=== PATIENT | male | born 1955 | race Caucasian/White ===

== ENCOUNTER 2016-08-03 16:55 | Emergency (ER) | payer BC ==
[2016-08-03] MEDS ORDERED: HYDROCODONE/APAP 7.5/325MG TABLET PO ONE (17:13)
--- NOTE | 2016-08-03 17:17 | Emergency Department Record ---
History of Present Illness - General Chief complaint: Extremity Problem Stated complaint: RESTLESS LEG Time Seen by Provider: 08/03/16 16:58 Source: Patient Mode of Arrival: Ambulatory Limitations: No limitations - History of Present Illness Initial comments: 61 yo male presents to ED with a CC of worsening restless leg syndrome since taking hi last [place] tablet yesterday morning around 10:00 AM. Patient reports taking the [place] 7.5 mg 5 times daily, and is out of his monthly supply but has been unable to see his PCP for a refill. Patient denies reports similar sympotms previously when her has run out of his medication. Complaint: Other (restless legs) -: Year(s) Location: Bilateral, Lower Leg, Thigh History of Same: Yes Consistency: Constant Improves with: Nothing Worsens with: Nothing Associated Symptoms: Denies other symptoms - Related Data Home Medications Medication Instructions Recorded Confirmed Last Taken Amitriptyline HCl [Amitriptyline 100 mg PO ASDIR 08/03/16 08/03/16 08/03/16 HCl] Atorvastatin Calcium [Lipitor] 10 mg PO DAILY 08/03/16 08/03/16 08/02/16 Hydrocodone/Acetaminophen 1 tab PO ASDIR 08/03/16 08/03/16 08/02/16 [Hydrocodone/Acetaminophen 7.5mg/325mg] Allergies Allergy/AdvReac Type Severity Reaction Status Date / Time Penicillins Allergy HIVES Verified 08/03/16 17:00 Travel Screening - Travel/Exposure Within Last 30 Days Have you traveled within the last 30 days?: No - Travel/Exposure Within Last Year Have you traveled outside the [place] in the last year?: No - Additonal Travel Details Have you been exposed to anyone with a communicable illness?: No - Travel Symptoms Symptom Screening: None Review of Systems Constitutional: Denies: Chills, Fever, Malaise, Night sweats Eyes: Denies: Eye discharge, Eye pain ENT: Denies: Congestion, Ear pain, Epistaxis Respiratory: Denies: Cough, Dyspnea Cardiovascular: Denies: Chest pain, Dyspnea on exertion Endocrine: Denies: Fatigue, Heat or cold intolerance Gastrointestinal: Denies: Abdominal pain, Nausea, Vomiting Genitourinary: Denies: Incontinence, Retention Musculoskeletal: Denies: Arthralgia, Back pain, Gout, Joint swelling Skin: Denies: Bruising, Change in color Neurological: Denies: Abnormal gait, Confusion, Headache, Seizure Psychiatric: Reports: Anxiety Hematological/Lymphatic: Denies: Anemia, Blood Clots Past Medical History - SOCIAL HISTORY Smoking Status: Never smoker Alcohol Use: Occassional Drug Use: None - RESPIRATORY Hx Respiratory Disorders: No - CARDIOVASCULAR Hx Cardio Disorders: No - NEURO Hx Neuro Disorders: Yes Hx Headaches: Yes (Migraines) Comment:: Restless legs - GI Hx GI Disorders: No - Hx Genitourinary Disorders: No - ENDOCRINE Hx Endocrine Disorders: No - MUSCULOSKELETAL Hx Musculoskeletal Disorders: No - PSYCH Hx Psych Problems: No - HEMATOLOGY/ONCOLOGY Hx Hematology/Oncology Disorders: No Family Medical History Any Significant Family History?: No Physical Exam - General General Appearance: Alert, Oriented x3, Cooperative, Mild distress, Other ( patient is unable to sit still on examination, pacing the ED) Limitations: No limitations - Head Head exam: Atraumatic, Normocephalic, Normal inspection Head exam detail: negative: Abrasion, Contusion, Lira's sign, General tenderness, Hematoma, Laceration - Eye Eye exam: Normal appearance. negative: Conjunctival injection, Periorbital swelling, Periorbital tenderness, Scleral icterus - ENT Ear exam: negative: Auricular hematoma, Auricular trauma Nasal Exam: negative: Active bleeding, Discharge, Dried blood, Foreign body Mouth exam: negative: Drooling, Laceration, Muffled voice, Tongue elevation - Neck Neck exam: Normal inspection. negative: Meningismus, Tenderness - Respiratory Respiratory exam: Normal lung sounds bilaterally. negative: Rales, Respiratory distress, Rhonchi, Stridor - Cardiovascular Cardiovascular Exam: Normal rhythm, Normal heart sounds, Tachycardia - GI/Abdominal GI/Abdominal exam: Soft. negative: Rebound, Rigid, Tenderness - Rectal Rectal exam: Deferred - exam: Deferred - Extremities Extremities exam: Normal inspection. negative: Calf tenderness, Pedal edema, Tenderness - Back Back exam: Denies: CVA tenderness (R), CVA tenderness (L) - Neurological Neurological exam: Alert, Normal gait, Oriented X3 - Psychiatric Psychiatric exam: Normal affect, Normal mood - Skin Skin exam: Normal color. negative: Abrasion Type of lesion: negative: abrasion Course Vital Signs 08/03/16 17:03 Temperature 97.8 F Pulse Rate 133 H Respiratory 16 Rate Blood Pressure 132/78 Pulse Ox 97 - Reevaluation(s) Reevaluation #1: 08/03/16 17:28 Patient's symptoms appear c/w opiate withdrawal symptoms. Patient is walking around the ED easily, is conversational, and has no clinical evidence for other systemic illness (fevers, sepsis, etc.). Case was discussed with Dr. Alvarado, will instruct the patient to follow-up with one of his PAs tomorrow for further evaluation and renewal of his medication. Patient appears stable for discharge at this time. 08/03/16 17:31 Disposition Disposition: Discharge Clinical Impression: Opiate withdrawal, Restless leg Disposition: Home, Self-Care Condition: (2) Stable Instructions: Restless Legs Syndrome (ED) Additional Instructions: Return to ED if your symptoms worsen or if you have any concerns. Follow-up with Dr. Alvarado tomorrow for further evaluation. Steven as directed. Forms: Patient Portal Access Time of Disposition: 17:31
[2016-08-03] MEDS ORDERED: HYDROCODONE/APAP 10/325 TABLET PO ONE (17:32)
== END 2016-08-03 17:45 | disposition home or self-care (01) ==
LOC: ER 16:55
DX: F11.23 Opioid dependence with withdrawal (principal); G25.81 Restless legs syndrome; T40.0X5A Adverse effect of opium, initial encounter
CPT/HCPCS: 99282

== ENCOUNTER 2016-11-02 07:53 | Emergency (ER) | payer BC ==
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
== END 2016-11-02 08:45 | disposition home or self-care (01) ==
LOC: ER 07:53
DX: F41.1 Generalized anxiety disorder (principal)
CPT/HCPCS: 99282

== ENCOUNTER 2017-04-09 14:13 | Emergency (ER) | payer BC ==
[2017-04-09] MEDS ORDERED: HYDROCODONE/APAP 5/325MG TABLET PO ONE (16:58)
--- NOTE | 2017-04-09 16:59 | Emergency Department Record ---
History of Present Illness - General Chief complaint: Pain Stated complaint: WITHDRAWAL FROM VICOD[place] Time Seen by Provider: 04/09/17 16:28 Source: Patient Mode of Arrival: Ambulatory Limitations: No limitations - History of Present Illness Initial comments: pt is here because pharmacist is refusing to fill his rxs for norco. he has been on it for years. he had 20 rxd on mar 16 at 1 a day. he is out and has a new rx but for some reason pharm wouldnt fill MD Complaint: Other (migraines and restless legs) Onset/Timin -: Days(s) Location: Lower Leg, Other History of Same: Yes Radiation: None Quality: Other Consistency: Constant, Getting worse Improves with: Medication Associated Symptoms: Denies other symptoms - Related Data Home Medications Medication Instructions Recorded Confirmed Last Taken Duloxetine HCl [Cymbalta] 60 mg PO DAILY 04/09/17 04/09/17 04/09/17 08:00 Hydrocodone/Acetaminophen [[place] 1 tab PO Q4HR PRN 04/09/17 04/09/17 Unknown 7.5mg/325mg] Pramipexole Di-HCl [Mirapex] 1 mg PO BID 04/09/17 04/09/17 04/09/17 08:00 Allergies Allergy/AdvReac Type Severity Reaction Status Date / Time Penicillins Allergy Intermediate HIVES Verified 04/09/17 16:09 Travel Screening - Travel/Exposure Within Last 30 Days Have you traveled within the last 30 days?: No - Travel/Exposure Within Last Year Have you traveled outside the [place] in the last year?: No - Additonal Travel Details Have you been exposed to anyone with a communicable illness?: No - Travel Symptoms Symptom Screening: None Review of Systems Reviewed: No additional complaints except as noted below Constitutional: Reports: As per HPI. Denies: Chills, Fever, Malaise, Night sweats, Weakness, Weight change Eyes: Reports: As per HPI. Denies: Eye discharge, Eye pain, Photophobia, Vision change ENT: Reports: As per HPI. Denies: Congestion, Dental pain, Ear pain, Epistaxis , Hearing loss, Throat pain Respiratory: Reports: As per HPI. Denies: Cough, Dyspnea, Hemoptysis, Stridor, Wheezes Cardiovascular: Reports: As per HPI. Denies: Arrhythmia, Chest pain, Dyspnea on exertion, Edema, Murmurs, Orthopnea, Palpitations, Paroxysmal nocturnal dyspnea, Rheumatic Fever, Syncope Endocrine: Reports: As per HPI. Denies: Fatigue, Heat or cold intolerance, Polydipsia, Polyuria Gastrointestinal: Reports: As per HPI. Denies: Abdominal pain, Constipation, Diarrhea, Hematemesis, Hematochezia, Melena, Nausea, Vomiting Genitourinary: Reports: As per HPI. Denies: Dysuria, Frequency, Hematuria, Incontinence, Retention, Testicular pain, Testicular mass, Urgency Musculoskeletal: Reports: As per HPI. Denies: Arthralgia, Back pain, Gout, Joint swelling, Myalgia, Neck pain Skin: Reports: As per HPI. Denies: Bruising, Change in color, Change in hair/ nails, Lesions, Pruritus, Rash Neurological: Reports: As per HPI. Denies: Abnormal gait, Confusion, Headache, Numbness, Paresthesias, Seizure, Tingling, Tremors, Vertigo, Weakness Psychiatric: Reports: As per HPI. Denies: Anxiety, Auditory hallucinations, Depression, Homicidal thoughts, Suicidal thoughts, Visual hallucinations Hematological/Lymphatic: Reports: As per HPI. Denies: Anemia, Blood Clots, Easy bleeding, Easy bruising, Swollen glands Past Medical History - SOCIAL HISTORY Smoking Status: Never smoker Alcohol Use: Occasional Drug Use: None - RESPIRATORY Hx Respiratory Disorders: No - CARDIOVASCULAR Hx Cardio Disorders: Yes Comment:: high cholesterol - NEURO Hx Neuro Disorders: Yes Hx Headaches: Yes (Migraines) Comment:: Restless legs - GI Hx GI Disorders: No - Hx Genitourinary Disorders: No - ENDOCRINE Hx Endocrine Disorders: No - MUSCULOSKELETAL Hx Musculoskeletal Disorders: No - PSYCH Hx Psych Problems: No - HEMATOLOGY/ONCOLOGY Hx Hematology/Oncology Disorders: No Family Medical History Any Significant Family History?: No Physical Exam - General General Appearance: Alert, Oriented x3, Cooperative, Mild distress - Head Head exam: Normal inspection - Eye Eye exam: Normal appearance, PERRL, EOMI Pupils: Normal accommodation - ENT ENT exam: Normal exam, Mucous membranes moist, Normal external ear exam, Normal orophraynx Ear exam: Normal external inspection. negative: External canal tenderness Nasal Exam: Normal inspection. negative: Discharge, Sinus tenderness Mouth exam: Normal external inspection, Tongue normal Teeth exam: Normal inspection. negative: Dental caries Throat exam: Normal inspection. negative: Tonsillar erythema, Tonsillar exudate - Neck Neck exam: Normal inspection, Full ROM. negative: Tenderness - Respiratory Respiratory exam: Normal lung sounds bilaterally. negative: Respiratory distress - Cardiovascular Cardiovascular Exam: Regular rate, Normal rhythm, Normal heart sounds - GI/Abdominal GI/Abdominal exam: Soft, Normal bowel sounds. negative: Tenderness - Rectal Rectal exam: Deferred - exam: Deferred - Extremities Extremities exam: Normal inspection, Full ROM, Normal capillary refill. negative: Tenderness - Back Back exam: Reports: Normal inspection, Full ROM. Denies: Muscle spasm, Rash noted, Tenderness - Neurological Neurological exam: Alert, CN II-XII intact, Normal gait, Oriented X3 - Psychiatric Psychiatric exam: Normal affect, Normal mood - Skin Skin exam: Dry, Intact, Normal color, Warm Course Vital Signs 04/09/17 16:02 Pulse Rate 98 H Respiratory 22 Rate Blood Pressure 140/95 Pulse Ox 97 Disposition Disposition: Discharge Clinical Impression: Medication refill Disposition: Home, Self-Care Condition: (1) Good Instructions: Restless Legs Syndrome (ED) Additional Instructions: follow up with family doctor. return sooner if worse. Quality - Quality Measures Quality Measures: N/A - Blood Pressure Screening Does Patient Have Any of the Following: No Blood Pressure Classification: Hypertensive Reading Systolic Measurement: 140 Diastolic Measurement: 95 Screening for High Blood Pressure: < Pre-Hypertensive BP, F/U Documented > [ G8950] Pre-Hypertensive Follow-up Interventions: Follow-up with rescreen every year.
== END 2017-04-09 17:07 | disposition home or self-care (01) ==
LOC: ER 14:13
DX: Z76.0 Encounter for issue of repeat prescription (principal); M79.669 Pain in unspecified lower leg; G25.81 Restless legs syndrome
CPT/HCPCS: 99282